=== PATIENT | female | born 1970 | race Caucasian/White ===

== ENCOUNTER 2017-07-30 09:09 | Inpatient (IN) | payer OTHER ==
[2017-07-28 12:16] LABS: Basophils % (Auto) 0.3 % (0.0-1.8); Eosinophils # (Auto) 0.1 K/mm3 (0.0-0.4); Eosinophils % (Auto) 1.4 % (0.0-4.3); Hematocrit 36.7 % (30.3-42.9); Hemoglobin 12.5 gm/dl (10.1-14.3); Lymphocytes # (Auto) 1.6 K/mm3 (1.2-5.4); Lymphocytes % (Auto) 27.1 % (13.4-35.0); Mean Corpuscular HGB Conc 34 % (30-34); Mean Corpuscular Hemoglobin 30 pg (28-32); Mean Corpuscular Volume 87 fl (79-97); Monocytes # (Auto) 0.5 K/mm3 (0.0-0.8); Platelet Count 353 K/mm3 (140-440); Red Blood Count 4.23 M/mm3 (3.65-5.03); Red Cell Distribution Width 13.7 % (13.2-15.2)
[2017-07-28 12:35] LABS: Alanine Aminotransferase 78 units/L (7-56); Albumin 4.2 g/dL (3.9-5); BUN/Creatinine Ratio 20; Blood Urea Nitrogen 8 mg/dL (7-17); Calcium 8.7 mg/dL (8.4-10.2); Hemolysis Index 8
--- NOTE | 2017-07-28 12:36 | Anesthesia Consultation ---
Anesthesia Consult and Med Hx Date of service: 07/30/17 - Airway Anesthetic Teeth Evaluation: Good ROM Head & Neck: Adequate Mental/Hyoid Distance: Adequate Mallampati Class: Class II Intubation Access Assessment: Good - Pulmonary Exam CTA: Yes - Cardiac Exam Cardiac Exam: RRR - Pre-Operative Health Status ASA Pre-Surgery Classification: ASA3 Proposed Anesthetic Plan: General - Cardiovascular System Hx Hypertension: Yes (x 3 yrs) - Central Nervous System Hx Psychiatric Problems: No - Endocrine Hx Non-Insulin Dependent Diabetes: Yes - Hematic Hx Anemia: Yes (past hx) - Other Systems Hx Cancer: No
--- NOTE | 2017-07-28 14:29 | History and Physical Report ---
History of Present Illness Date of examination: 07/28/17 History of present illness: Patient has been reassessed/reevaluated/re-examined. H&P has been reviewed. No interval changes. 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 The symptoms began 4-6 months ago. The patient complains of menorrhagia, metrorrhagia, dysmenorrhea, pelvic pain and abdominal pain, but denies abnormal pap smears, dyspareunia, post-coital bleeding, abnormal periods, abnormal vaginal discharge, breast mass or lumps, depression, anxiety, urinary symptoms, chest pain, palpitations, shortness of breath, leg swelling, back pain, headaches and bowel problems. The patient notes that she is sexually active and uses contraception. The patient reports that she has regular menses. Patient is due for Pap Smear. The patient also presents with uterine fibroids. She complains of abdominal pain, pelvic pain, pelvic pressure and menorrhagia, but denies abdominal pressure and intermenstrual bleeding. Treatment tried to date includes NSAIDs and IUD placement Prior to today's visit the patient has had US of pelvis, which revealed multiple myomas Patient's symptoms when present disrupts her normal daily activities Patient desires definitive treatment Vital Signs: Patient Profile: 47 Years Old Female LMP: 07/08/2017 Height: 62 inches (157.48 cm) Weight: 143 pounds (65 kg) BMI: 26.15 BSA: 1.66 Menstrual History: LMP (date): 07/08/2017 LMP - Character: normal Menarche: 12 Menses interval: 28 days Menstrual flow: 3-12 days Past History : 4 Term Births: 4 Premature Births: 0 Living Children: 4 Para: 4 Mult. Births: 0 Prev : 1 Aborta: 0 Elect. Ab: 0 Spont. 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 Operations: w/ Tubal Ligation Abnormal PAP: positive Uterine Anomaly: positive fibroids Infection History HIV Risk Eval: no Hx of STD: None Current Allergies (reviewed today): * SEAFOOD (Critical) Past Medical History: Diabetes, Type 2 Hypertension Fibroids Osteoarthritis Past Surgical History: w/ Tubal Ligation Family History Summary: - Has No Family History of Cervical Cancer - Entered On: 09/26/2014 Has No Family History of Colon Cancer - Entered On: 09/26/2014 Has No Family History of Diabetes - Entered On: 09/26/2014 Has No Family History of Diabetes, Hypertension, or Coronary Artery Disease - Entered On: 09/26/2014 Has No Family History of DVT/PE on OCP - Entered On: 09/26/2014 General Comments - FH: uterine cancer Family History Breast Cancer pat aunt Family History of Coronary Heart Disease Family History of Hypertension No Family History of Cervical Cancer No Family History of Colon Cancer No Family History of Ovarvian Cancer No Family History of DVT/PE on OCP Social History: Patient is Risk Factors: Smoked Tobacco Use: Never smoker Smokeless Tobacco Use: Never Passive smoke exposure: no Drug use: no HIV high-risk behavior: no Alcohol use: no Exercise: no Seatbelt use: 100 % ROS General Complains of fatigue. Denies fever, chills, sweats, anorexia, weakness, malaise, weight loss and sleep disorder. Complains of menorrhagia, pelvic pain, painful periods and painful sex. Denies vaginal discharge, incontinence, dysuria, hematuria, urinary frequency, amenorrhea, abnormal vaginal bleeding, genital sores, decreased libido, urinary urgency, hot flashes, vaginal dryness, vaginal itching and vaginal odor. CV Denies chest pains, palpitations, syncope, dyspnea on exertion, orthopnea, PND and peripheral edema. Resp Denies cough, dyspnea at rest, excessive sputum, hemoptysis, wheezing and pleurisy. GI Denies nausea, vomiting, diarrhea, constipation, change in bowel habits, abdominal pain, melena, hematochezia, jaundice, gas/bloating, indigestion/ heartburn, dysphagia and odynophagia. Breast Denies left breast lump, right breast lump, nipple discharge, bloody discharge from nipple, breast pain, abnormal mammogram and breast enlargement. Psych Denies depression, anxiety, irritability and mood swings. Past History Past Medical History: arthritis (See HPI), diabetes, hypertension, other Past Surgical History: , Other (See HPI) Social history: , full code, other (See HPI) Family history: other (See HPI) Medications and Allergies Allergies Allergy/AdvReac Type Severity Reaction Status Date / Time shellfish derived Allergy Rash Verified 07/23/17 14:02 Home Medications Medication Instructions Recorded Confirmed Last Taken Type Amlodipine Besylate [Norvasc] 2.5 mg PO DAILY 07/28/17 07/28/17 Unknown History Cetirizine HCl [ZyrTEC] 10 mg PO DAILY 07/28/17 07/28/17 Unknown History Fexofenadine HCl [Jagruti Allergy] 180 mg PO DAILY 07/28/17 07/28/17 Unknown History Gemfibrozil [Lopid] 600 mg PO BID 07/28/17 07/28/17 Unknown History Mometasone Furoate [Nasonex] 2 spray IH DAILY 07/28/17 07/28/17 Unknown History Sitagliptin/Metformin (Nf) 1 tab PO BID 07/28/17 07/28/17 Unknown History [Janumet 50-1,000 mg (Nf)] Active Meds: Active Medications Famotidine (Pepcid) 20 mg PO PREOP NR Stop: 07/30/17 13:00 Sodium Chloride (Nacl 0.9% 1000 Ml) 1,000 mls @ 100 mls/hr IV DIRECT JUAN ANTONIO Midazolam HCl (Versed) 2 mg IV PREOP NR Stop: 07/30/17 13:00 Review of Systems Constitutional: other (See HPI) Exam - Physical Exam Narrative exam: HEENT: normocephalic, no lesions or deformities Skin no lesions Chest: respiratory effort normal, clear to auscultation Breasts: skin/areolae normal, no masses, no nipple discharge, no erythema/warmth /tenderness, and axillae normal. 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 No evidence of cystocele or rectocele. Cervix: No lesions; no cervical motion tenderness Uterus: enlarged uterus 14 -16 weeks in size tender with movement Adnexae: Unable to palpate due to uterine size Rectovaginal: exam defered - Constitutional Vitals: Temp Pulse Resp BP Pulse Ox 98.4 F 76 18 132/82 07/28/17 11:45 07/28/17 11:45 07/28/17 11:45 03/21/18 11:45 Results - Labs CBC & Chem 7: 07/28/17 11:55 07/28/17 11:55 Labs: Abnormal lab results 07/28/17 07/28/17 Range/Units 11:55 11:55 [place] % (Auto) 8.0 H (0.0-7.3) % Creatinine 0.4 L (0.7-1.2) mg/dL Glucose 192 H (65-100) mg/dL AST 44 H (5-40) units/L ALT 78 H (7-56) units/L Assessment and Plan - Patient Problems (1) Intramural leiomyoma of uterus Current Visit: No Status: Acute Plan to address problem: Diagnosis explained to patient . Questions answered. Discussed with patient various medical, surgical and radiological therapies common for treatment including myomectomy hysterectomy and uterine artery embolization Patient desires definitive treatment Patient desires hysterectomy Discussed risks and benefits of laparotomy, laparoscopy, vaginal and robotic assisted approaches for hysterectomies Patient desires robotic assisted total hysterectomy. Consent reviewed and signed . The risks and alternatives for this surgery were reviewed with the patient. Discuss the risks of the surgery including infection , bleeding possibly heavy enough to require a blood transfusion, possible damage to bowel, bladder or ureter. Patient understand that this surgery with make her sterile.Patient understands if her ovaries are removed she will become menopausal. Also if unable to complete robitcally a laparotomy maybe required. Her questions were answered. Patient advised the small risks of spreading of malignancy if morcellator is used during the surgery patient understands and approve of use if necessary Patient understands and desires to proceed. 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
[~2017-07-30 09:09] MED LIST: ANCEF/STERILE WATER 2 GM/20 ML 2 GM/20 ML SYRINGE IV NR; PEPCID PO NR; VERSED IV NR
[2017-07-30] MEDS ORDERED: ZOFRAN IV PRN ×2 (09:32→22:14)
[2017-07-30] MEDS ORDERED: NACL BACTERIOSTATIC INFILTRATI ONE (09:34)
[2017-07-30] MEDS ORDERED: LACTATED RINGERS 1,000 ML IV SCH ×2 (10:00→11:00)
--- NOTE | 2017-07-30 10:08 | Anesthesia Consultation ---
Anesthesia Consult and Med Hx Date of service: 07/30/17 - Airway Anesthetic Teeth Evaluation: Good ROM Head & Neck: Adequate Mental/Hyoid Distance: Adequate Mallampati Class: Class III Intubation Access Assessment: Good - Pulmonary Exam CTA: Yes - Cardiac Exam Cardiac Exam: RRR - Pre-Operative Health Status ASA Pre-Surgery Classification: ASA3 Proposed Anesthetic Plan: General - Cardiovascular System Hx Hypertension: Yes (x 3 yrs) - Central Nervous System Hx Psychiatric Problems: No - Endocrine Hx Non-Insulin Dependent Diabetes: Yes - Hematic Hx Anemia: Yes (past hx) - Other Systems Hx Cancer: No
--- NOTE | 2017-07-30 10:08 | Anesthesia Day of Surgery ---
Anesthesia Day of Surgery - Day of Surgery Patient Examined: Yes Patient H&P Reviewed: Yes Patient is NPO: Yes
[2017-07-30] MEDS ORDERED: DIPRIVAN 10 MG/ML IV ONE (10:10)
[2017-07-30] MEDS ORDERED: SUBLIMAZE ONE ×2 (10:10→12:51)
[2017-07-30] MEDS ORDERED: NEOSPORIN GU IR ONE ×2 (10:10→11:27)
[2017-07-30] MEDS ORDERED: MARCAINE 0.25% INFILTRATI ONE (10:10)
[2017-07-30] MEDS ORDERED: TORADOL IV PRN (10:15)
[2017-07-30] MEDS ORDERED: DILAUDID IV PRN (10:15)
[2017-07-30] MEDS ORDERED: VERSED ONE (10:36)
[2017-07-30] MEDS ORDERED: NACL 0.9% IR ONE ×2 (11:27)
[2017-07-30] MEDS ORDERED: ZEMURON IV ONE (12:03)
[2017-07-30] MEDS ORDERED: ROBINUL ONE (12:03)
[2017-07-30] MEDS ORDERED: NEOSTIGMINE ONE (12:03)
[2017-07-30] MEDS ORDERED: NACL 0.9% 1000 ML 1,000 ML ONE (12:03)
[2017-07-30] MEDS ORDERED: XYLOCAINE MPF 2% ONE (12:03)
[2017-07-30] MEDS ORDERED: LACTATED RINGERS 1,000 ML ONE (12:03)
[2017-07-30] MEDS ORDERED: REGLAN ONE (12:03)
[2017-07-30] MEDS ORDERED: ZOFRAN ONE (12:03)
--- NOTE | 2017-07-30 12:36 | Operative Report ---
Operative Report Operative Report: Date of procedure: 07/30/2017 Pre-operative diagnosis: Intramural leiomyomata, menorrhalgia and dysmenorrhea Post-operative diagnosis: Same Procedure name(s):Robotic Assisted Total Hysterectomy with bilateral salpingectomy with lysis of adhesions Surgeon: Greg Peña MD Zoning Assistant: Usama Pelletier Anesthesia: General EBL: 50 mL Complications: None Findings: Patient with uterus with multiple myomas largest one appears to be anterior about 4 to 5 cm in diameter also fundal myoma patient with bilateral interrupted fallopian tubes with hydrosalpinx on the patient's right fallopian tube bilaterally ovaries appeared to be normal. Adhesions between the right fallopian tubes and right sidewall also adhesions between the small intestines and right posterior uterus. Specimen(s): Uterus with cervix and bilateral fallopian tubes Procedure: Patient was brought to the operating room where general anesthesia was induced without difficulty. Patient was placed in the dorsal lithotomy position. Prepped and draped in the usual sterile manner for robotic procedure. Thomson catheter was placed without difficulty. Speculum was placed in the vagina. A large V-Care Uterine manipulator was placed without difficulty. Attention was now switched to the patient's abdomen. A vertical supra-umbilicus incision was made with a scalpel. A 10-12 trocar was placed in this incision under direct visualization. Intra-abdominal placement was verified with no evidence of internal organ damage. The patient pelvic findings were noted as above. It was determined that the patient was a candidate for robotic procedure. On both sides the umbilical incision at about 8 cm, incisions were made for robotic trocar. Each robotic trocar was placed under direct visualization with no evidence of internal organ damage. conservation assistant port were then placed. One 8-10 trocar was placed 2 fingerbreadths above the right iliac crest. At this time the patient was placed in extreme Trendelenburg. The da Estefany robot was then docked on the patient's left side. The trocars connected to the robot appropriately. At this time I took my place under the robotic operating wiggins. Starting on the patient's right side the mesosalpinx of the tube were cauterized for mild distal to proximal tube. Utero- ovarian complex was cauterized and cut. This was followed by cauterizing and cutting the right fallopian tube and right round ligament. The broad ligament was then opened. The bladder flap was formed anteriorly. The posterior broad ligament was then excised. The uterine vessels were skeletonized. The ureter was clearly seen out of the operative field. The bladder was pushed away from the anterior uterus. Attention was then switched to the patient's left side. The same procedure was repeated on the left side with perform the salpingectomy followed by isolating the uterine vessels cauterized and cutting and completing the bladder flap from the left side. At this time the uterus was appearing very cyanotic. After inspecting the bladder flap insured no evidence of bladder injury, the colpotomy was then started. Incision started at 6:00 until the V-Care could be seen. This incision was extended from 6:00 to 9:00. Then from 6:00 to 3:00. Then from 9:00 to 12:00. This incision was extended from 3: 00 to 12:00. At this time colpotomy was complete with no evidence of adjacent organ damage. The shipping and receiving assistant remove the uterus from through the colpotomy site. The vaginal cuff was irrigated and cauterized and found to be hemostatic. The cuff was closed with roboticly using 0 V- Lock suture. This closure was hemostatic after irrigation and Bovie. All pedicles were inspected and found to be hemostatic. The ureters were identified bilaterally and found to be functioning normal. The patient had clear urine in the Thomson catheter with no evidence of mixture with blood. Beverly was placed on the cuff and pedicles for postoperative hemostasis . All instruments were then removed. The large trocar sites were closed in layers and 4-0 Vicryl. The smaller incisions were closed subcuticularly with 4-0 Vicryl. The patient tolerated procedure well. She was awakened in the operating room and accompanied to the recovery room in good condition.
[2017-07-30] MEDS ORDERED: NACL 0.9% 1000 ML 1,000 ML IV SCH (13:00)
[2017-07-30] MEDS ORDERED: DEMEROL IV PRN (13:20)
[2017-07-30] MEDS ORDERED: MILK OF MAGNESIA PO PRN (14:28)
[2017-07-30] MEDS ORDERED: ANCEF/NS 1 GM/50 ML 1 GM/50 ML BAG IV SCH (14:28)
[2017-07-30] MEDS ORDERED: D50W (25GM) Syringe IV PRN (14:28)
[2017-07-30] MEDS: NORCO 5/325 PO PRN ×2 (15:10→20:03)
--- NOTE | 2017-07-30 16:42 | Event Note ---
Date: 07/30/17 Day of surgery. Discuss operative findings with patient and questions answered. Patient without fever. Will ambulate in halls this evening. Good urine output. We will continue routine postoperative care.
[2017-07-30] MEDS ORDERED: GLUCOPHAGE PO SCH (17:00)
[2017-07-30] MEDS: NACL 0.45% 1000 ML 1,000 ML IV SCH (17:22)
[2017-07-30] MEDS ORDERED: NORVASC 2.5 MG PO SCH (18:45)
[2017-07-30] MEDS: HumuLIN R SUB-Q SCH (20:10)
[2017-07-30] MEDS: ceFAZolin 1 GM in NACL 0.9% 20 ML IV SCH (21:33)
[2017-07-30] MEDS ORDERED: METFORMIN PO SCH (22:00)
[2017-07-30] MEDS ORDERED: SITAGLIPTIN PO SCH (22:00)
[2017-07-30] MEDS: LOPID PO SCH (22:00)
[2017-07-30] MEDS: COLACE PO SCH (22:00)
[2017-07-31] MEDS: NACL 0.45% 1000 ML 1,000 ML IV SCH (01:29)
[2017-07-31] MEDS: NORCO 5/325 PO PRN ×2 (01:40→07:56)
[2017-07-31] MEDS: TORADOL IV PRN ×2 (01:40→07:53)
[2017-07-31] MEDS: HumuLIN R SUB-Q SCH ×3 (02:00→12:48)
[2017-07-31] MEDS: ceFAZolin 1 GM in NACL 0.9% 20 ML IV SCH (04:29)
[2017-07-31 07:38] VITALS: BP 137/83
[2017-07-31] MEDS: LOPID PO SCH (09:10)
[2017-07-31] MEDS: COLACE PO SCH (09:10)
[2017-07-31] MEDS ORDERED: FLONASE NS SCH (10:00)
[2017-07-31] MEDS ORDERED: NON-FORMULARY (Cetirizine Hcl [Zyrtec] 10 MG) PO SCH (10:00)
[2017-07-31] MEDS ORDERED: NORVASC PO SCH ×2 (10:00)
[2017-07-31] MEDS ORDERED: TRADJENTA PO SCH (10:00)
[2017-07-31] MEDS ORDERED: CLARITIN PO SCH (10:00)
[2017-07-31] MEDS ORDERED: NON-FORMULARY (Amlodipine Besylate [Norvasc] 2.5 MG) PO SCH (10:00)
[2017-07-31] MEDS ORDERED: NON-FORMULARY (Mometasone Furoate [Nasonex] 2 SPRAY) IH SCH (10:00)
[2017-07-31] MEDS ORDERED: NON-FORMULARY (Fexofenadine Hcl [Allegra Allergy] 180 MG) PO SCH (10:00)
--- NOTE | 2017-07-31 11:36 | Discharge Summary ---
Providers - Providers Date of Admission: 07/30/17 13:31 Date of discharge: 07/31/17 Attending physician: RIMMA HALE Primary care physician: GLORIA FRAGOSO Hospitalization Condition: Good Procedures: RATH with (B) salpingectomy, KAUR Hospital course: unremarkable Disposition: - TO HOME OR SELFCARE - Discharge Diagnoses (1) History of robot-assisted laparoscopic hysterectomy Status: Acute (2) Arthritis Status: Chronic (3) Diabetes 1.5, managed as type 2 Status: Chronic (4) Hypertension Status: Chronic Qualifiers: Hypertension type: essential hypertension Qualified Code(s): I10 - Essential (primary) hypertension Core Measure Documentation - Palliative Care Palliative Care/ Comfort Measures: Not Applicable - Core Measures Any of the following diagnoses?: none Exam - Constitutional Vitals: Temp Pulse Resp BP Pulse Ox 99.2 F 76 18 137/83 95 07/31/17 07:37 07/31/17 07:37 07/31/17 07:37 07/31/17 07:37 07/31/17 07:37 General appearance: Present: no acute distress - Respiratory Respiratory effort: normal Respiratory: negative: CTA - Cardiovascular Rhythm: regular - Extremities Extremities: no ischemia, No edema (Non tender) - Abdominal General gastrointestinal: Present: soft, non-distended, normal bowel sounds Female genitourinary: Present: deferred - Integumentary Integumentary: Present: clear, warm, dry - Psychiatric Psychiatric: appropriate mood/affect Plan Activity: other (No sex x 8weeks, no driving until ok with Dr. Hale, ambulate ~1mile on your property a day, use incentive spirometer every hour while awake. ) Weight Bearing Status: Weight Bear as Tolerated Diet: low fat, low cholesterol, low salt, diabetic (Eat small meals frequently, drinl 64oz water a day, void frequently to keep bladder empty.) Wound: open to air, keep clean and dry Special Instructions: no heavy lifting (>25#) Follow up with: GLORIA FRAGOSO DO [Primary Care Provider] - 7 Days RIMMA HALE MD [Staff Physician] - 7 Days (as scheduled) Prescriptions: Ibuprofen [Motrin 800 MG tab] 800 mg PO Q6H PRN #30 tablet PRN Reason: Pain oxyCODONE /ACETAMINOPHEN [Percocet 5/325 mg] 1 - 2 tab PO Q4H PRN #30 tablet PRN Reason: Pain, Moderate
== END 2017-07-31 13:00 | disposition home or self-care (01) | DRG 743 ==
LOC: OR 09:09 → OB 13:31
PROVIDERS: ADMIT Obstetrics & Gynecology; ATTEND Obstetrics & Gynecology
PROC: 0UT94ZZ Resection of Uterus, Percutaneous Endoscopic Approach (ICD-10-PCS; principal; 2017-07-30)
PROC: 0UT74ZZ Resection of Bilateral Fallopian Tubes, Percutaneous Endoscopic Approach (ICD-10-PCS; 2017-07-30)
PROC: 8E0W4CZ Robotic Assisted Procedure of Trunk Region, Percutaneous Endoscopic Approach (ICD-10-PCS; 2017-07-30)
DX: D25.1 Intramural leiomyoma of uterus (principal); N92.1 Excessive and frequent menstruation with irregular cycle; N94.6 Dysmenorrhea, unspecified; I10 Essential (primary) hypertension; M19.90 Unspecified osteoarthritis, unspecified site; E11.9 Type 2 diabetes mellitus without complications; Z98.51 Tubal ligation status; Z91.013 Allergy to seafood; Z79.899 Other long term (current) drug therapy
CPT/HCPCS: 36415; 80053; 82962; 84703; 85014; 85018; 85025; 86850; 86900; 86901; 88307; A4217; J0690; J1885; J2175; J2250; J2405; J2704; J2710; J2765; J3010; J7030; J7120